=== PATIENT | female | born 1950 | race Caucasian/White ===

== ENCOUNTER → 2023-08-09 | Emergency (ER) | payer MEDICARE, MEDICAID ==
[~2023-08-09] VITALS: Ht 170.2 cm; Wt 73.2 kg
[~2023-08-09] MED LIST: ACYC5CRE2 TOP; DOCOSANOL 2 GM CREAM..G. TP ONE; acyclovir 5% 15GM ointment TP ONE
[2023-08-09 09:22] VITALS: BP 134/70; PULSE 78; RESP 18; TEMP 97.9; O2SAT 98
== END | disposition home or self-care (01) ==
LOC: ER 08:15
DX: B00.9 Herpesviral infection, unspecified (principal)
CPT/HCPCS: 99284

== ENCOUNTER 2023-08-13 08:13 | Emergency (ER) | payer MEDICARE, MEDICAID ==
[~2023-08-13] VITALS: Ht 170.2 cm; Wt 72.8 kg
[~2023-08-13 08:13] MED LIST changes: -DOCOSANOL 2 GM CREAM..G. TP ONE; -acyclovir 5% 15GM ointment TP ONE
[2023-08-13 08:34] VITALS: BP 133/67; PULSE 86; TEMP 98.2; O2SAT 98
[2023-08-13 09:26] VITALS: RESP 16
[2023-08-13] MEDS ORDERED: AMOX-580 PO (09:27)
[2023-08-13] MEDS ORDERED: IBUP-1984 PO (09:27)
== END 2023-08-13 10:09 | disposition home or self-care (01) ==
LOC: ER 08:14
DX: J01.90 Acute sinusitis, unspecified (principal); Z79.899 Other long term (current) drug therapy
CPT/HCPCS: 99284

== ENCOUNTER → 2023-08-21 | Emergency (ER) | payer MEDICARE, MEDICAID ==
[~2023-08-21] VITALS: Ht 172.7 cm; Wt 72.6 kg
[~2023-08-21] MED LIST changes: +AMOX-580 PO; +MUPI22OI30 TOP
[2023-08-21 10:02] VITALS: BP 155/67; PULSE 90; RESP 18; TEMP 98; O2SAT 98
== END | disposition home or self-care (01) ==
LOC: ER 07:57
DX: L01.00 Impetigo, unspecified (principal); Z72.89 Other problems related to lifestyle; Z79.2 Long term (current) use of antibiotics; Z79.899 Other long term (current) drug therapy
CPT/HCPCS: 99283

== ENCOUNTER 2023-12-16 10:09 | Emergency (ER) | payer MEDICARE, MEDICAID ==
[~2023-12-16] VITALS: Ht 170.2 cm; Wt 63.4 kg
[~2023-12-16 10:09] MED LIST changes: -AMOX-580 PO; -MUPI22OI30 TOP
[2023-12-16 10:32] VITALS: BP 135/82; PULSE 81; RESP 17; TEMP 97.5; O2SAT 97
== END 2023-12-16 12:14 | disposition home or self-care (01) ==
LOC: ER 10:09
DX: S90.222A Contusion of left lesser toe(s) with damage to nail, initial encounter (principal); Z72.89 Other problems related to lifestyle; Z98.890 Other specified postprocedural states; Z79.899 Other long term (current) drug therapy; X58.XXXA Exposure to other specified factors, initial encounter; Y93.89 Activity, other specified; Y92.89 Other specified places as the place of occurrence of the external cause; Y99.8 Other external cause status
CPT/HCPCS: 99284

== ENCOUNTER 2024-02-06 07:47 | Emergency (ER) | payer MEDICARE, MEDICAID ==
[~2024-02-06] VITALS: Ht 170.2 cm; Wt 63.6 kg
[2024-02-06] MEDS ORDERED: PRED10TA23 PO (07:58)
[2024-02-06] MEDS ORDERED: DIPH25TA62 PO (07:58)
[2024-02-06] MEDS ORDERED: HYDR28CR14 TOP (07:58)
[2024-02-06 08:20] VITALS: BP 145/69; PULSE 76; RESP 16; TEMP 98; O2SAT 98
== END 2024-02-06 08:21 | disposition home or self-care (01) ==
LOC: ER 07:48
DX: S30.860A Insect bite (nonvenomous) of lower back and pelvis, initial encounter (principal); S20.469A Insect bite (nonvenomous) of unspecified back wall of thorax, initial encounter; Z79.899 Other long term (current) drug therapy; W57.XXXA Bitten or stung by nonvenomous insect and other nonvenomous arthropods, initial encounter; Y93.89 Activity, other specified; Y92.009 Unspecified place in unspecified non-institutional (private) residence as the place of occurrence of the external cause; Y99.8 Other external cause status
CPT/HCPCS: 99283

== ENCOUNTER 2024-02-20 09:17 | Emergency (ER) | payer MEDICARE, MEDICAID ==
[~2024-02-20] VITALS: Ht 170.2 cm; Wt 46.8 kg
[~2024-02-20 09:17] MED LIST changes: +DIPH25TA62 PO; +HYDR28CR14 TOP
[2024-02-20 09:37] VITALS: BP 114/80; PULSE 90; RESP 18; TEMP 96.5; O2SAT 98
[2024-02-20] MEDS ORDERED: BENCRM TOP (09:38)
== END 2024-02-20 09:42 | disposition home or self-care (01) ==
LOC: ER 09:17
DX: S80.861A Insect bite (nonvenomous), right lower leg, initial encounter (principal); Z79.899 Other long term (current) drug therapy; Z79.2 Long term (current) use of antibiotics; Z98.890 Other specified postprocedural states; Z59.00 Homelessness unspecified; W57.XXXA Bitten or stung by nonvenomous insect and other nonvenomous arthropods, initial encounter; Y93.89 Activity, other specified; Y92.89 Other specified places as the place of occurrence of the external cause; Y99.8 Other external cause status
CPT/HCPCS: 99282